=== PATIENT | female | born 2000 | race Caucasian/White ===

== ENCOUNTER 2025-02-18 10:56 | Emergency (ER) | payer BC, SELFPAY ==
--- NOTE | 2025-02-18 10:56 | ED.URI ---
HPI - URI/Sore Throat General Chief Complaint: Upper Respiratory Infection Stated Complaint: strep/covid test Time Seen by Provider: 02/18/25 10:56 Source: patient Mode of arrival: ambulatory Limitations: no limitations History of Present Illness HPI Narrative: Patient is a 24-year-old female who presents with 3 days of sore throat, dry cough, ear pain and headache. Has tried [id number] medication with no relief. Denies any fever, chills, nausea, vomiting, diarrhea. Related Data Home Medications ?Medication ?Instructions ?Recorded ?Confirmed ?Last Taken ?Type buspirone 5 mg tablet 5 mg PO ONCE 02/18/25 02/18/25 Unknown History Allergies Allergy/AdvReac Type Severity Reaction Status Date / Time No Known Allergies Allergy Verified 02/18/25 11:08 Review of Systems Review of Systems: All systems reviewed & are unremarkable except as noted in HPI and below Constitutional: Constitutional: Denies chills, Denies fatigue, Denies fever(s), Reports headache(s), Denies malaise and Denies weakness Eyes: Eyes: Denies blurry vision, Denies itchy eyes and Denies loss of vision ENT: Denies otalgia, Reports headache(s), Reports nasal congestion, Denies sinus pain and Reports sore throat Cardiovascular: Cardiovascular: Denies chest pain, Denies irregular heart rhythm and Denies dyspnea Respiratory: Respiratory: Reports cough and Denies dyspnea Gastrointestinal: Gastrointestinal: Denies abdominal pain, Denies diarrhea, Denies nausea and Denies vomiting Musculoskeletal: Musculoskeletal: Denies back pain, Denies myalgias and Denies arthralgias Integumentary/Breasts: Skin/Breast: Denies pruritus and Denies rash Neurologic: Reports headache(s), Denies loss of vision and Denies weakness Psychiatric: Psychiatric: Reports no additional psychiatric complaints Endocrine: Endocrine: Denies fatigue Allergic/Immunologic: Allergic/Immunologic: Denies itchy eyes PMFSH Comments At time of signature, agree with nursing past medical, surgical, social and family history. There is no relevant family history pertinent to the presenting complaint. Exam Const: General: cooperative, healthy appearing, comfortable, no acute distress and well nourished Nutritional Appearance: well nourished Orientation/consciousness: patient oriented x3 Limitations: no limitations HENMT: Head: normal to inspection, normocephalic and atraumatic Ears: hearing grossly normal bilaterally, external ears normal, TM's normal bilaterally, EAC's normal and no periauricular adenopathy Face/Nose/Sinus: Normal external nose present, Abnormal mucous membranes and turbinates present erythematous bilateral and diffuse, normal facial exam, sinuses nontender and face symmetric Face and sinus: normal facial exam, sinuses nontender and face symmetric Mouth: Yes Normal oral and palatal mucosa present, Yes lip normal, Yes tongue normal, Yes Normal salivary glands and ducts present, Yes oropharynx normal and Yes moist mucous membranes Teeth and gingiva: dentition normal Throat: posterior oropharynx normal, tonsils normal, uvula midline and postnasal drainage Eyes: General: appearance normal, both eyes and all related structures Alignment and Position: alignment normal and position normal Periorbital: periorbital findings normal Eyelids: eyelids normal Pupils: Equal, round and reactive pupils present Neck: Neck: normal visual inspection, full ROM, no lymphadenopathy and supple Chest: Chest palpation & inspection: normal inspection of the chest and normal palpation of entire chest wall Resp: Effort & Inspection: normal respiratory effort and able to speak in complete sentences Auscultation: clear to auscultation bilaterally, no crackles, no rales, no rhonchi and no wheezes Cardio: Rate: tachycardic Rhythm: regular rhythm Heart sounds: S1 normal heart sound present and S2 normal heart sound present GI: Inspection: normal to inspection Skin: General skin exam: normal color and no rashes or lesions noted Neuro: General: patient oriented x3 and moves all extremities Cranial nerves: Yes Equal, round and reactive pupils present Speech: normal speech Gait exam (Neuro): Normal gait present Extrem: General: normal to inspection, full ROM and no edema Psych: Appearance: grossly normal and well kempt Mental Status: mental status grossly normal Speech and movement: Normal speech and movement present Affect: normal affect Attitude: cooperative Thought process: Normal thought process present Course Course Emergency Course: Discharge instructions reviewed with patient, as well as provided in writing per nursing staff. The instructions also include specific and strict return/GO TO THE ER as well as f/u information. All questions have been answered, and the patient deny any further questions with discharge and discharge plan. Portions of this record may have been created with voice recognition software Level of Care: Express Care Visit Vital Signs Vital signs: Vital Signs Temperature 36.7 C 02/18/25 11:08 Pulse Rate 112 H 02/18/25 11:08 Respiratory Rate 18 02/18/25 11:08 Blood Pressure 109/80 02/18/25 11:08 Pulse Oximetry 99 02/18/25 11:08 Oxygen Delivery Room Air 02/18/25 11:08 Temperature 36.7 C 02/18/25 11:08 Pulse Rate 112 H 02/18/25 11:08 Respiratory Rate 18 02/18/25 11:08 Blood Pressure 109/80 02/18/25 11:08 Pulse Oximetry 99 02/18/25 11:08 Oxygen Delivery Room Air 02/18/25 11:08 Reviewed MDM - URI/Sore Throat MDM Narrative Medical decision making narrative: Pt well hydrated appearing, in no respiratory distress, hemodynamically stable. Recommend supportive care. The patient is stable at time of discharge the clinical impression was discussed and the patient was given the opportunity to ask questions, which were addressed as completely as possible given the information available at present. Anticipatory guidance and return to care precautions were discussed and the importance of primary care follow-up was stressed and encouraged. The patient voiced understanding of the plan, indications to return, and the need for follow-up. Exam findings show no acute concerns or changes Patient is appropriate for outpatient treatment and follow-up. Differential diagnosis considered: Palumbo virus, strep pharyngitis, allergic rhinitis, upper respiratory tract infection, sinusitis, rhinosinusitis, nasopharyngitis. viral pharyngitis, otitis media, otitis externa, otitis effusion, foreign body, cerumen impaction, viral syndrome, and influenza.? Lab Data Attestation: I reviewed the patient's lab results. Labs: Lab Results 02/18/25 Range/Units 11:32 POC Influenza A Ag Negative (Negative) POC Influenza B Ag Negative (Negative) POC SARS CoV-2 Ag Negative (Negative) POC Grp A Strep Screen Negative (Negative) Discharge Plan Discharge Clinical Impression: Upper respiratory infection Qualifiers: URI type: acute nasopharyngitis (common cold) Qualified Code(s): J00 - Acute nasopharyngitis [common cold] Patient Disposition: Home Condition: Stable Instructions: Upper Respiratory Infection (ED) Additional Instructions: Your rapid strep swab was negative today at [facility]. A throat culture will be sent to the laboratory for further testing. If the test is positive, you will receive a phone call within 48 hours and an appropriate antibiotic will be initiated at that time. Your Covid and flu are both negative Your symptoms are likely due to a viral illness, which is not treated with antibiotics. Viral symptoms can be present for up to a few weeks. -For pain/fever, you may take: Tylenol 650-1000mg by mouth every 4-6 hours. Do not exceed 4000mg in 24 hours. Advil (Ibuprofen) 600 mg by mouth every 6 hours. Do not exceed 2400mg in 24 hours. 8 AM: Tylenol 11 AM: Ibuprofen 2 PM: Tylenol 5 PM: Ibuprofen 8 PM: Tylenol 11 PM: Ibuprofen 2 AM: Tylenol 5 AM: Ibuprofen -Antihistamine medication such as Benadryl/Zyrtec at night and Claritin/[place] during the day can help improve symptoms. -Use Flonase twice a day for 5 days then daily to help reduce the inflammation and dry up your sinuses. -You can also use Sudafed behind the pharmacy counter(12 or 24 hour). Be sure to drink plenty of water with these medications at least 8 ounces with every dose and it is important to drink 8 to 10 glasses of water per day. Water is a natural decongestant -Eat and drink things that are easy to swallow, like tea or soup, or popsicles. -Oral rinses such as: Salt water gargles and/or may use topical anesthetic (eg. Chloraseptic spray) or lozenges to relieve dryness or throat pain). -Frequent hand washing or hand die cutter operator is one of the best ways to prevent spread of infection. -Using a vaporizer or humidifier at night will also help thin secretions and help with coughing up phlegm. Call your Primary Care Doctor and make a follow-up appointment in 3 days. If your cough worsens, you develop a fever greater than 103, you develop shaking chills, a fast heartbeat, trouble breathing and/or feel you are are breathing much faster than usual, call your Primary Care Doctor or go to the ER. Patient Language: Vietnamese Prescriptions: New benzonatate 100 mg capsule 100 mg PO BID PRN (Reason: cough) Qty: 14 0RF fluticasone propionate [Flonase Allergy Relief] 50 mcg/actuation spray,suspension 1 spray intranasal DAILY Qty: 16 0RF Rx Instructions: administer into each nostril No Action buspirone 5 mg tablet 5 mg PO ONCE Follow-up/Referrals: Valentin Garcia MD [Physician] - 3 Days (Establish care) Stand Alone Forms: Work/School Release IP Time of Disposition: 11:44
--- OUTSIDE RECORDS SUMMARY | 2025-02-18 11:07 | XMS_ITS | Encounter Summary ---
Author Organization [facility] Address [address] [place] [address] Phone Care Team Providers Care Nurses Director Name Role Phone Provider, Unknown Primary Care Provider Sánchez Linares III, MD, Zia Navarro Primary Care Provider + Encounter Details Date Type Department Care Team (Late st Contact Info) Description 01/20/2023 Lab Requisition [facility] [address] [place] [address] rIvin Sandoval MD [address] [place] [address] Encounter for pre-employment examination Social History Tobacco Use Types Packs/Day Years Used Date Smoking Tobacco: Never Assessed Comments Unknown Sex and Gender Information Value Date Recorded Sex Assigned at Female 02/23/2023 11:44 AM CDT Legal Sex Female 3:58 PM CDT Gender Identity Female 02/23/2023 11:44 AM CDT Sexual Orientation Not on file documented as of this encounter Plan of Treatment Not on file documented as of this encounter Procedures Procedure Name Priority Date/Time Associated Diagnosis Comments QUANTIFERON-TB GOLD PLUS Routine 01/20/2023 12:03 PM CDT Encounter for pre-employment examination MMRV PANEL Routine 01/20/2023 12:03 PM CDT Encounter for pre-employment examination MUMPS IGG Routine 01/20/2023 12:03 PM CDT Encounter for pre-employment examination HERPES ZOSTER (VARICELLA) IGG Routine 01/20/2023 12:03 PM CDT Encounter for pre-employment examination RUBEOLA (MEASLES) IGG Routine 01/20/2023 12:03 PM CDT Encounter for pre-employment examination RUBELLA IMMUNITY IGG Routine 01/20/2023 12:03 PM CDT Encounter for pre-employment examination HEPATITIS B SURFACE ANTIBODY (HBSAB) Routine 01/20/2023 12:03 PM CDT Encounter for pre-employment examination documented in this encounter Results * HERPES ZOSTER (VARICELLA) IGG (01/20/2023 12:03 PM CDT) VARICELLA ZOSTER IGG 3.5 >=1.1 AI 01/21/2023 12:42 AM CDT [facility] Blood No Phlebotomy Charged / Unknown 01/20/2023 12:03 PM CDT 01/20/2023 12:40 PM CDT Narrative [facility] - 01/21/2023 12:42 AM CDT <= 0.8 Negative. No detectable VZV IgG antibody. 0.9 - 1.0 Equivocal >=1.1 Positive Antibody testing was performed by multiplex flow immunoassay on the damntheradio platform. us Irvin Sandoval MD IMMUNOLOGY ORDERABLES Final Result [facility] [address] [place] [address], * RUBEOLA (MEASLES) IGG (01/20/2023 12:03 PM CDT) MEASLES AB IGG 2.4 >=1.1 AI 01/21/2023 12:42 AM CDT [facility] Blood No Phlebotomy Charged / Unknown 01/20/2023 12:03 PM CDT 01/20/2023 12:40 PM CDT Narrative [facility] - 01/21/2023 12:42 AM CDT <= 0.8 Negative. No detectable Measles IgG antibody. 0.9 - 1.0 Equivocal >=1.1 Positive Antibody testing was performed by multiplex flow immunoassay on the BioPlex platform. Irvin Sandoval MD IMMUNOLOGY ORDERABLES Final Result Performing Organization Address City/[facility] Co de Phone Number [facility] [address] [place] [address], [place] * RUBELLA IMMUNITY IGG (01/20/2023 12:03 PM CDT) RUBELLA IMMUNITY Immune Immune, Invalid 01/21/2023 12:42 AM CDT [facility] Blood No Phlebotomy Charged / Unknown 01/20/2023 12:03 PM CDT 01/20/2023 12:[address] [facility] - 01/21/2023 12:42 AM CDT Antibody testing was performed by multiplex flow immunoassay on the BioPlex platform. Irvin Sandoval MD CHEMISTRY ORDERABLES F inal Result Performing Organization Address [facility] Co de Phone Number [facility] [address] [place] [address], [place] * MUMPS IGG (01/20/2023 12:03 PM CDT) Mumps Ab IgG 3.5 >=1.1 AI 01/21/2023 12:42 AM CDT [facility] Blood No Phlebotomy Charged / Unknown 01/20/2023 12:03 PM CDT 01/20/2023 12:[address] [facility] - 01/21/2023 12:42 AM CDT <= 0.8 Negative. No detectable Mumps IgG antibody. 0.9 - 1.0 Equivocal >=1.1 Positive Antibody testing was performed by multiplex flow immunoassay on the BioPlex platform. us Irvin Sandoval MD IMMUNOLOGY ORDERABLES Final Result [facility] [address] [place] [address], * (ABNORMAL) QUANTIFERON-TB GOLD PLUS (01/20/2023 12:03 PM CDT) NIL CONTROL 0.01 <8.01 IU/mL 01/22/2023 1:29 PM CDT [facility] TB ANTIGEN 1 0.76(H) <0.35 IU/mL 01/22/2023 1:29 PM CDT [facility] TB ANTIGEN 2 0.85(H) <0.35 IU/mL 01/22/2023 1:29 PM CDT [facility] MITOGEN CONTROL 9.99 >0.49 IU/mL 01/23/20 1:29 PM CDT [facility] INTEPRETATION TB POSITIVE( A) NEGATIVE, NEGATIVE (TB antigen response less than 25% of internal negative control value) 01/22/2023 1:29 PM CDT [facility] Comment:Sample demonstrated an immune response to Mycobacterium tuberculosis antigens. M. tuberculosis infection likely. Blood No Phlebotomy Charged / Unknown 01/20/2023 12:03 PM CDT 01/20/2023 12:40 PM CDT Narrative [facility] - 01/22/2023 1:29 PM CDT A POSITIVE QUANTIFERON-TB GOLD PLUS RESULT SHOULD NOT BE THE SOLE OR DEFINITIVE BASIS FOR DETERMINING INFECTION WITH M.TUBERCULOSIS. Diagnosing or excluding tuberculosis disease, and assessing the probability of LTBI, requires a combination of epidemiological, historical, medical and diagnostic findings (e.g., acid fast bacilli (AFB) smear and culture, chest xray) that should be taken into account when interpreting QFT-Plus results. Furthermore, the magnitude of the measured gamma interferon level cannot be correlated to stage or degree of infection, level of immune responsiveness, or likelihood for progression to active disease. The Nil control adjusts for background (e.g., elevated levels of circulating gamma interferon or presence of heterophile antibodies). The Mitogen control serves as an internal positive control and verifies each specimen tested can produce a gamma interferon response. Low mitogen may occur with insufficient lymphocytes, reduced lymphocyte activity due to improper specimen handling, filling/mixing of the mitogen tube, or inability of the patient's lymphocytes to generate gamma interferon. Infection with other Mycobacteria, including M. kansasii, M. szulgai, and M. marinum, may cause false positive results. A negative QuantiFERON-TB Gold Plus result does not preclude the possibility of M. tuberculosis infection or tuberculosis disease: false negative results can be due to incorrect blood sample collection/ improper handling of the specimen, stage of infection (e.g., specimen obtained prior to the development of cellular immune response), co-morbid conditions which affect immune function, or other individual immunological factors. The minimum number of lymphocytes required for a reliable test has not been established and may also be variable. Diagnostic testing for Mycobacterium tuberculosis using Interferon Gamma Release Assays should follow applicable published guidelines, including when testing in populations such as children, women, and HIV-infected or otherwise immunocompromised individuals. https://www.cdc.gov/tb/publications/guidelines/testing.htm us Irvin Sandoval MD IMMUNOLOGY ORDERABLES Final Result Performing Organization Address City/[facility] Co de Phone Number [facility] [address] [place] [address], [place] * HEPATITIS B SURFACE ANTIBODY (HBSAB) (01/20/2023 12:03 PM CDT) HEPATITIS B SURFACE ANTIBODY 9,280.72 mIU/mL [facility] [id number] 01/21/2023 12:43 AM CDT [facility] Comment: Detected Range: >12.00 Individual is considered immune to HBV infection Blood No Phlebotomy Charged / Unknown 01/20/2023 12:03 PM CDT 01/20/2023 12:40 PM CDT Irvin Sandoval MD CHEMISTRY ORDERABLES F inal Result Performing Organization Address [facility] Co de Phone Number [facility] [address] [place] [address], [place] documented in this encounter Visit Diagnoses Diagnosis Encounter for pre-employment examination Health examination of defined subpopulation documented in this encounter Additional Health Concerns Infection Onset Date Last Indicated Resolved Time Respiratory Rule Out - RPA 02/25/2023 02/25/2023 0 02/25/2023 10:00 AM CDT COVID - 19 02/25/2023 02/25/2023 02/25/2023 10:0 0 AM CDT documented as of this encounter Care Teams Nurses Director Relationship Specialty Start Date End Date Provider, Unknown UNKNOWN PCP - General 04/22/20 06/07/24 Zia Linares III, MD [address] [place] [phone] PCP - General Internal Medicine/Pediatrics 06/08/24 documented as of this encounter
--- OUTSIDE RECORDS SUMMARY | 2025-02-18 11:07 | XMS_ITS | Clinical Summary ---
Author Organization [facility] Address [facility] [place] [address] Care Team Providers Care Torch Operator Name Role Phone Non-Staff, Provider Primary Care Provider Unavai lable Allergies No known active allergies Medications busPIRone (BUSPAR) 5 MG tablet Take 1 tablet (5 mg total) by mouth 3 (three) times daily. 07/24/2024 Active Social History Tobacco Use Types Packs/Day Years Used Date Smoking Tobacco: Never Smokeless Tobacco: Never Tobacco Cessation:Counseling Given: Not Answered Alcohol Use Standard Drinks/Week Comments Not Currently 0 (1 standard drink = 0.6 oz pur e alcohol) Comments No Sex and Gender Information Value Date Recorded Sex Assigned at Female 09/05/2024 9:42 AM WINCH DRIVER Legal Sex Female 9:40 AM WINCH DRIVER Gender Identity Not on file Sexual Orientation Not on file Last Filed Vital Signs Vital Sign Reading Time Taken Comments Blood Pressure 127/82 09/05/2024 10:22 AM WINCH DRIVER Pulse 105 09/05/2024 10:22 AM WINCH DRIVER Temperature 37.2 C (98.9 F) 09/05/2024 10:22 AM WINCH DRIVER Respiratory Rate 16 09/05/2024 10:22 AM WINCH DRIVER Oxygen Saturation 100% 09/05/2024 10:22 AM WINCH DRIVER Inhaled Oxygen Concentration - - Weight 59 kg (130 lb) 09/05/2024 10:22 AM WINCH DRIVER Height 152.4 cm (5') 09/05/2024 10:22 AM WINCH DRIVER Body Mass Index 25.39 09/05/2024 10:22 AM WINCH DRIVER Plan of Treatment Health Maintenance Due Date Last Done Comments Cervical Cancer Screening Pa p Smear (Age 21 to 29) Every 3 Years 2002 Cervical Cancer Screening 2002 Annual Physical 2005 HPV Vaccines (1 - 3-dose series) 2017 Hepatitis C 2020 Meningococcal B Vaccine (2 o f 2 - Bexsero SCDM 2-dose series) 09/21/2020 03/24/2020 DTaP, Tdap and Td Vaccines ( 1 - Tdap) 2021 Hepatitis B Vaccines (1 of 3 - 19+ 3-dose series) 2021 COVID-19 Vaccine (3 - 2023-2 5 season) 2024 07/08/2021, 10/07/2020 Meningococcal Vaccine Completed 03/24/2020 , 01/20/2017 Pneumococcal Vaccine: Pediatrics (0 to 5 Years) and At-Risk Patients (6 to 49 Years) Aged Out No longer eligible b ased on patient's age to complete this topic RSV Immunizations Under 20 Months Aged Out No longer eligible b ased on patient's age to complete this topic Insurance [address] [address] [address] Care Teams Torch Operator Relationship Specialty Start Date End Date Non-Staff, Provider PCP - General UNKNOWN PHYSICIAN SPECIALTY 09/05/24
--- OUTSIDE RECORDS SUMMARY | 2025-02-18 11:07 | XMS_ITS | Encounter Summary ---
Author Organization [facility] Address [address] [place] [address] Phone Care Team Providers Care Expanded Function Dental Assistant Name Role Phone Provider, Unknown Primary Care Provider Sánchez Linares III, MD, Zia Navarro Primary Care Provider + Encounter Details Date Type Department Care Team (Late st Contact Info) Description 04/17/2020 Lab Requisition [facility] [address] [place] [address] Jovan Flores MD [address] [place], [place] [id number] Acute recurrent streptococcal tonsillitis Social History Tobacco Use Types Packs/Day Years [...] Procedure Name Priority Date/Time Associated Diagnosis Comments PATHOLOGY SURGICAL Routine 04/17/2020 9: 00 AM CDT Acute recurrent streptococcal tonsillitis documented in this encounter Results * PATHOLOGY SURGICAL (04/17/2020 9:00 AM CDT) Case Report Surgical Pathology Report Case: [id number] Authorizing Provider: Jovan Flores MD Collected: 04/17/2020 09:00 AM Ordering Location: [facility] Received: 04/17/2020 08:40 PM [facility] Pathologist: Uziel Durant MD Specimen: Tonsils, right and left tonsils 04/23/2020 3:24 PM CDT [facility] FINAL DIAGNOSIS Tonsillectomy: Acute and chronic follicular tonsillitis. 04/23/2020 3:24 PM CDT [facility] at 1524 CDT Pre-Operative Diagnosis Recurrent strep tonsillitis 04/23/2020 3:24 PM CDT [facility] Gross Description A. right and left tonsils Received in formalin labeled right and left tonsils, Anu Gill are two evans tonsils, 32 x 21 x 15 mm and 35 x 21 x 13 mm mm, in aggregate 7.69 gm. One is inked for identification purposes. Sectioning reveals an unremarkable cut surface. Representatively submitted in a single cassette. Shahbaz Rogers 04/23/2020 3:24 PM CDT [facility] Microscopic Description Sections show lymphoid tissue with follicular hyperplasia with prominent tingible body macrophages. There are foci of acute inflammation within the crypts. A bland appearing squamous epithelium is present around the periphery. 04/23/2020 3:24 PM CDT [facility] Comment: This document was completed utilizing speech recognition software. Grammatical errors, random word insertions, pronoun errors, and incomplete sentences are an occasional consequence of this system due to software limitations, ambient noise, and hardware issues. Any formal questions or concerns about the content, text or information contained within the body of this dictation should be directly addressed to the provider for clarification. Other BILATERAL PALATINE TONSILS / Unknown 04/17/2020 9:00 AM CDT 04/17/2020 8:40 PM CDT us Jovan Flores MD PATHOLOGY/CYTOLOGY ORDERABLES Final Result [facility] [address] [place] [address], documented in this encounter Visit Diagnoses Diagnosis Acute recurrent streptococcal tonsillitis Streptococcal sore throat documented in this encounter Additional Health Concerns Infection Onset Date Last Indicated Resolved Time Respiratory Rule Out - RPA 02/25/2023 02/25/2023 0 02/25/2023 10:00 AM CDT COVID - 19 02/25/2023 02/25/2023 02/25/2023 10:0 0 AM CDT documented as of this encounter Care Teams Expanded Function Dental Assistant Relationship Specialty Start Date End Date Provider, Unknown UNKNOWN PCP - General 04/22/20 06/07/24 Zia Linares III, MD [address] [place] [phone] PCP - General Internal Medicine/Pediatrics 06/08/24 documented as of this encounter
--- OUTSIDE RECORDS SUMMARY | 2025-02-18 11:07 | XMS_ITS | Clinical Summary ---
Author Organization [facility] Address [address] [place] [address] Phone Care Team Providers Care Body Artist Name Role Phone Vijay TORRES MD, Zia Navarro Primary Care Provider + Allergies No known active allergies Medications busPIRone (BUSPAR) 5 MG Tablet TAKE 1 TABLET BY MOUTH THREE TIMES A DAY 270 Tablet 01/04/2025 Active Active Problems Problem Noted Date Diagnosed Date Seasonal depression 06/08/2023 Paresthesias in left hand 02/25/2023 Generalized anxiety disorder with panic attacks 02/25/2023 Runny nose 02/25/2023 Acute cough 02/25/2023 Acute nonintractable headache 02/25/2023 Encounters Date Type Department Care Team Description 01/04/2025 Refill [facility] [place] [address] [place] [address] Zia Linares III, MD Medication Refill from Last 3 Months Immunizations Immunization Administration Dates Next Due Influenza,Split Virus,Trivalent,Injectable,PF Social History Tobacco Use Types Packs/Day Years Used Date Smoking Tobacco: Never Smokeless Tobacco: Never Tobacco Cessation:Counseling Given: Not Answered PHQ-2 Answer Date Recorded Total Score - Questions 1-9 3 05/12 Comments No Sex and Gender Information Value Date Recorded Sex Assigned at Female 02/23/2023 11:44 AM CDT Legal Sex Female 3:58 PM CDT Gender Identity Female 02/23/2023 11:44 AM CDT Sexual Orientation Not on file Last Filed Vital Signs Vital Sign Reading Time Taken Comments Blood Pressure 112/78 04/26/2024 11:59 AM CDT Pulse 75 04/26/2024 11:59 AM CDT Temperature 36.8 C (98.2 F) 02/25/2023 9:07 AM CDT Respiratory Rate 16 02/25/2023 9:07 AM CDT Oxygen Saturation 99% 04/26/2024 11:59 AM CDT Inhaled Oxygen Concentration - - Weight 61.2 kg (135 lb) 04/26/2024 11:59 AM CDT Height 152.4 cm (5') 06/08/2023 10:15 AM [employer] Body Mass Index 26.37 06/08/2023 10:15 AM [employer] MECH[employer]IC Plan of Treatment Health Maintenance Due Date Last Done Comments Hepatitis C Virus (HCV) Screening 2002 TdaP Immunization 2002 Human Papillomavirus (HPV) Immunization (1 - 3-dose series) 2017 Meningococcal B Immunization (2 of 2 - Bexsero SCDM 2-dose series) 09/21/2020 03/24/2020 Pap Smear 2023 SARS-COV-2 Immunization (3 - season) 2024 07/08/2021, 10/07/2020 Influenza Immunization (#1) 03/11/202503/11, 03/30/2022, 07/22/2019, Additional history exists Respiratory Syncytial Virus (RSV) Immunization (Adult) (1 - 1-dose 75+ series) 2077 Meningococcal Immunization (ACWY) Completed 03/24/2020, 01/20/2017 Hepatitis B Immunization Completed 023, 03/29/2022, 02/25/2022 Pneumococcal Immunization Combined Aged Out No longer eligible based on patient's age to complete this topic Rotavirus Immunization Aged Out No lo nger eligible based on patient's age to complete this topic Insurance [address] [place] [address] * Guarantor: [facility] Account Type Relation to Patient Date of Phone Billing Address Institutional Other [address] [place] [id number] Care Teams Body Artist Relationship Specialty Start Date End Date Zia Linares III, MD [address] [place] [phone] PCP - General Internal Medicine/Pediatrics 06/08/24
[2025-02-18 11:08] VITALS: BP 109/80; PULSE 112; RESP 18; TEMP 36.7; O2SAT 99
[2025-02-18 11:35] LABS: EDCOVIDSCREEN Negative (Negative); EDINFLUASCREEN Negative (Negative); EDINFLUBSCREEN Negative (Negative); EDSTREPNEGPOS1 Negative (Negative)
== END 2025-02-18 11:47 | disposition home or self-care (01) ==
PROVIDERS: Emergency Provider Nurse Practitioner Family; Referring Provider Emergency Medicine
DX: J00 Acute nasopharyngitis [common cold] (principal); Z20.822 Contact with and (suspected) exposure to COVID-19; F41.9 Anxiety disorder, unspecified
CPT/HCPCS: 87081; 87426; 87804; 87880; 99203; G0463